=== PATIENT | female | born 1990 | race Caucasian/White ===

== ENCOUNTER 2017-08-29 04:24 | Day surgery (SDC) | payer BC, OTHER ==
[~2017-08-29] VITALS: Ht 154.9 cm; Wt 54.5 kg
[2017-08-29] VITALS (7 sets, daily range): BP systolic 96–104; BP diastolic 58–69; PULSE 62–83; TEMP 36.4–37.1; O2SAT 93–100; Ht 154.9 cm; Wt 54.5 kg
[~2017-08-29 04:24] MED LIST: ACET-1101 PO
[2017-08-29] MEDS ORDERED: MoRPHine SULFATE 4 MG/ML 1 ML CARP\\VIAL IV STA (04:46)
[2017-08-29] MEDS ORDERED: ONDANSETRON INJ 2 MG/ML 2 ML VIAL IV STA (04:46)
[2017-08-29] MEDS ORDERED: SODIUM CHLORIDE 0.9% 1000ML 1,000 ML IV STA (04:46)
[2017-08-29] MEDS ORDERED: OPTIRAY 320 IV PRN (05:00)
[2017-08-29 05:01] LABS: BASO % 0.1 %; BASO ABS # 0.01 K/uL (0-0.2); HEMATOCRIT 33.4 % (37-47); HEMOGLOBIN 11.3 g/dL (12.0-16.0); IG# 0.03 K/uL (0.00-0.02); LYMPH % 12.5 %; LYMPH ABS # 1.62 K/uL (1.2-3.4); MEAN CELL VOLUME 87.2 fL (80-100); MEAN CORPUSCULAR HEMOGLOBIN 29.5 pg (25-34); MEAN CORPUSCULAR HGB CONC 33.8 g/dl (32-36); MEAN PLATELET VOLUME 9.7 fL (7.4-10.4); MONO ABS # 0.64 K/uL (0.11-0.59); NEUT % 82.2 %; NEUT ABS # 10.61 K/uL (1.4-6.5); PLATELET COUNT 190 K/uL (130-400); RED CELL DISTRIBUTION WIDTH CV 13.4 % (11.5-14.5); RED CELL DISTRIBUTION WIDTH SD 42.9 fL (36.4-46.3); WHITE BLOOD COUNT 12.91 K/uL (4.8-10.8)
--- NOTE | 2017-08-29 05:05 | EMERGENCY ROOM VISIT NOTE ---
History First contact with patient: 04:36 Chief Complaint: ABDOMINAL PAIN Stated Complaint: PAIN IN STOMACH/ABDOMEN,SHOULDERS,CONSTIPATION,DIZ Nursing Triage Summary: Pt c/o abdominal pain since last evening. Now having nausea and dizziness. History of Present Illness The patient is a 26 year old female who presents to the Emergency Room with complaints of abdominal pain. The patient reports that she first developed abdominal pain yesterday evening at approximately 7:30 PM. She notes that the pain radiates across her lower abdomen. She states that for the past 4 hours, she has felt nauseated and lightheaded, especially with standing. She rates her overall discomfort an 8/10. She states that the pain worsens when she lies down. She also states that lying down causes the pain to radiate into her chest and shoulders. Nothing makes the pain better. She denies any history of abdominal issues or surgeries. Her last menstrual period was at the beginning of the month, although she does note she has some mild vaginal bleeding at this time. She denies urinary symptoms. She has not vomited. She denies changes in her bowel movements. She denies recent illness or fevers. Review of Systems A complete 10 point review of systems was reviewed with the patient with pertinent positives and negatives as per history of present illness. All else were negative. Past Medical/Surgical History Medical Problems: (1) Hemoperitoneum (2) No significant active problems Surgical Problems: (1) No significant past surgical history Social History Smoking Status: Never Smoker Housing Status: lives with family Current/Historical Medications Scheduled PRN Oxycodone/Acetaminophen 5MG/325MG (Percocet 5MG/325MG), 1 TABLET PO Q4H PRN for Pain Physical Exam Vital Signs Date Time Temp Pulse Resp B/P (MAP) Pulse Ox O2 Delivery O2 Flow Rate FiO2 08/29/17 06:56 36.8 79 18 102/72 100 08/29/17 06:44 79 18 102/72 100 Room Air 08/29/17 06:37 36.8 75 16 105/57 97 Room Air 08/29/17 04:52 92/56 08/29/17 04:29 36.6 83 20 107/34 100 Room Air Physical Exam VITALS: Vitals are noted on the nurse's note and reviewed by myself. Vital signs stable. GENERAL: This is a 26-year-old female, sitting up in bed, acutely ill-appearing , pale, vomiting into an emesis bag. SKIN: Pale. EARS: External auditory canals clear, tympanic membranes pearly rodriguez without erythema or effusion bilaterally. EYES: Pupils equal round and reactive to light and accommodation. MOUTH: Mucous membranes moist. HEART: Regular rate and rhythm without murmurs gallops or rubs. LUNGS: Clear to auscultation bilaterally without wheezes, rales or rhonchi. ABDOMEN: Positive bowel sounds. Diffuse tenderness and guarding to palpation of the entire abdomen. NEURO: Patient was alert and oriented to person place and time. Medical Decision & Procedures ER Provider Diagnostic Interpretation: US OB 1st TRIMESTER: No intrauterine gestation identified. Echogenic, vascular left adnexal structure measuring 4.3 x 3.7 x 3.8 cm. Adjacent complex fluid. Moderate free fluid noted in abdomen. Findings are highly suspicious for ruptured ectopic. Endometrial echocomplex measures up to 8 mm Probable fibroid at posterior uterine body measuring up to 1.8 cm. Nabothian cyst. Right ovary measures 3.8 x 2.7 x 3.5 cm and contains a 2.7 cm simple cyst. Left ovary measures 3.1 x 2.1 x 3.3 cm. Blood flow demonstrated in bilateral ovaries. Radiologist: Andreas Chery MD Laboratory Results 08/29/17 04:10 Test 08/29/17 04:10 Immature Granulocyte % (Auto) 0.2 % White Blood Count 12.91 K/uL (4.8-10.8) Red Blood Count 3.83 M/uL (4.2-5.4) Hemoglobin 11.3 g/dL (12.0-16.0) Hematocrit 33.4 % (37-47) Mean Corpuscular Volume 87.2 fL (80-100) Mean Corpuscular Hemoglobin 29.5 pg (25-34) Mean Corpuscular Hemoglobin Concent 33.8 g/dl (32-36) Platelet Count 190 K/uL (130-400) Mean Platelet Volume 9.7 fL (7.4-10.4) Neutrophils (%) (Auto) 82.2 % Lymphocytes (%) (Auto) 12.5 % Monocytes (%) (Auto) 5.0 % Eosinophils (%) (Auto) 0.0 % Basophils (%) (Auto) 0.1 % Neutrophils # (Auto) 10.61 K/uL (1.4-6.5) Lymphocytes # (Auto) 1.62 K/uL (1.2-3.4) Monocytes # (Auto) 0.64 K/uL (0.11-0.59) Eosinophils # (Auto) 0.00 K/uL (0-0.5) Basophils # (Auto) 0.01 K/uL (0-0.2) Immature Granulocyte # (Auto) 0.03 K/uL (0.00-0.02) Anion Gap 8.0 mmol/L (3-11) Est Creatinine Clear Calc Drug Dose 96.6 ml/min Estimated GFR () 129.3 Estimated GFR (Non- 111.6 BUN/Creatinine Ratio 14.7 (10-20) Calcium Level 8.5 mg/dl (8.5-10.1) Total Bilirubin 0.7 mg/dl (0.2-1) Direct Bilirubin 0.2 mg/dl (0-0.2) Aspartate Amino Transf (AST/SGOT) 8 U/L (15-37) Alanine Aminotransferase (ALT/SGPT) 17 U/L (12-78) Alkaline Phosphatase 35 U/L (45-117) Total Protein 7.0 gm/dl (6.4-8.2) Albumin 3.9 gm/dl (3.4-5.0) Lipase 124 U/L (73-393) Human Chorionic Gonadotropin, Qual POS (NEG) Human Chorionic Gonadotropin, Quant 546 mIU/mL Medications Administered Medications (Trade) Dose Ordered Sig/Priya Route Start Time Stop Time Status Last Admin Dose Admin Sodium Chloride 1,000 ml @ 999 mls/hr Q1H1M STAT IV 08/29/17 04:46 08/29/17 05:46 DC 08/29/17 04:58 999 MLS/HR Ondansetron HCl (Zofran Inj) 4 mg NOW STAT IV 08/29/17 04:46 08/29/17 04:48 DC 08/29/17 04:58 4 MG Morphine Sulfate (MoRPHine SULFATE INJ) 4 mg NOW STAT IV 08/29/17 04:46 08/29/17 04:48 DC 08/29/17 04:57 4 MG Bupivacaine HCl (Marcaine 0.5% MPF Inj) 30 ml STK-MED ONCE .ROUTE 08/29/17 06:25 08/29/17 06:26 DC 08/29/17 08:22 7 ML Hydromorphone HCl (Dilaudid Inj) 0.5 mg Q5M PRN IV 08/29/17 06:45 08/29/17 11:45 DC 08/29/17 09:11 0.5 MG ED Course The patient was evaluated as above. Labs were drawn and IV access was obtained. Patient was immediately treated with IV fluids, morphine and Zofran. Patient was reevaluated and feeling slightly better, although still reports dizziness and abdominal pain. Serum hCG was found to be positive. Patient was immediately sent for pelvic ultrasound. I spoke with the lab technician, who reports that the patient has significant amount of blood within the abdomen as well as a left adnexal mass. Consultation was immediately placed with Dr. Lion, who will meet the patient in the room to evaluate her. The patient will be taken to the OR emergently due to suspected ruptured ectopic . Medical Decision Differential diagnosis includes ectopic , kidney stone, appendicitis, perforated viscus, bowel obstruction, pancreatitis, sepsis, among others. The patient is a 26-year-old female who presents today complaining of abdominal pain. On exam, patient is extremely uncomfortable and borderline hypotensive. She did have a surgical abdomen. Serum was found to be positive, raising suspicion for ruptured ectopic. Patient was sent immediately to ultrasound which confirmed hemoperitoneum and a left adnexal mass. Labs otherwise showed leukocytosis, stable H&H. IV access x2 was established and patient was hydrated. CLOTH LAMINATING SUPERVISOR consulted and patient was taken to OR emergently. She remained hemodynamically stable throughout her ED stay. The patient's case was reviewed with Dr. Alcaraz, ED attending physician, who agreed with my assessment and treatment plan. Medication Reconcilliation Current Medication List: was personally reviewed by me Blood Pressure Screening Patient's blood pressure: Low blood pressure Impression Primary Impression: Ruptured ectopic Critical Care I have personally spent greater than 35 minutes of critical care time in the direct management of this patient. This includes bedside care, interpretation of diagnostic studies, and testing, discussion with consultants, patient, and family members, and other required patient management activities. This 35 minutes is in excess of all separately billable procedures. Departure Information Prescriptions Oxycodone/Acetaminophen 5MG/325MG (PERCOCET 5MG/325MG) Tab 1 TABLET PO Q4H Y for Pain, #14 TAB Prov: Mya Lion M.D. 08/29/17 Referrals No Doctor, Assigned (PCP) Patient Instructions [facility]
[2017-08-29 05:19] LABS: ALBUMIN 3.9 gm/dl (3.4-5.0); CALCIUM 8.5 mg/dl (8.5-10.1); CREATININE 0.75 mg/dl (0.60-1.20); POTASSIUM 3.3 mmol/L (3.5-5.1)
[2017-08-29] MEDS ORDERED: MIDAZOLAM HCL 1 MG/ML 2ML VIAL ONE (06:24)
[2017-08-29] MEDS ORDERED: ROCURONIUM BROMIDE 10 MG/ML 5 ML VIAL IV ONE (06:24)
[2017-08-29] MEDS ORDERED: SUCCINYLCHOLINE CHLORIDE 20 MG/ML 10 ML VIAL IV ONE (06:24)
[2017-08-29] MEDS ORDERED: NEOSTIGMINE METHYLSULFATE 5 MG/5 ML SYR ONE (06:24)
[2017-08-29] MEDS ORDERED: GLYCOPYRROLATE INJ 0.2 MG/ML VIAL ONE (06:24)
[2017-08-29] MEDS ORDERED: LIDOCAINE HCL 2% 2 ML VIAL (20MG/ML) ONE (06:24)
[2017-08-29] MEDS ORDERED: FENTANYL CITRATE INJ 50 MCG/1 ML 2 ML VIAL ONE (06:24)
[2017-08-29] MEDS ORDERED: ONDANSETRON INJ 2 MG/ML 2 ML VIAL ONE (06:24)
[2017-08-29] MEDS ORDERED: PROPOFOL IV EMULSION 10 MG/ML 20 ML VIAL IV ONE ×2 (06:24→08:12)
[2017-08-29] MEDS ORDERED: DEXAMETHASONE SOD INJ 4 MG/ML VIAL ONE (06:24)
[2017-08-29] MEDS ORDERED: BUPIVACAINE 0.5 % 5 MG/1 ML MPF 30ML VIAL ONE (06:25)
[2017-08-29] MEDS ORDERED: EpHEDrine SULFATE INJ 50 MG/ML AMP IV PRN (06:45)
[2017-08-29] MEDS ORDERED: PHENYLEPHRINE 100MCG/ML 5ML SYR IV PRN (06:45)
[2017-08-29] MEDS ORDERED: LABETALOL HCL IV 5 MG/ML 20ML IV PRN (06:45)
[2017-08-29] MEDS ORDERED: MoRPHine SULFATE 10 MG/ML CARP/VIAL IV PRN (06:45)
[2017-08-29] MEDS ORDERED: NALOXONE HCL 0.4 MG/1 ML VIAL/CARP IV PRN (06:45)
[2017-08-29] MEDS ORDERED: FLUMAZENIL 0.1 MG/1 ML 10 ML VIAL IV PRN (06:45)
[2017-08-29] MEDS ORDERED: ONDANSETRON INJ 2 MG/ML 2 ML VIAL IV PRN ×2 (06:45→15:15)
[2017-08-29] MEDS ORDERED: MEPERIDINE HCL 25 MG/ML CARP IV PRN (06:45)
[2017-08-29] MEDS ORDERED: ATROPINE SULFATE 0.1 MG/ML 5ML SYR IV PRN (06:45)
--- NOTE | 2017-08-29 06:58 | DIAGNOSTIC IMAGING REPORT ---
FIRST TRIMESTER OBSTETRICAL ULTRASOUND (transabdominal and endovaginal scanning) CLINICAL HISTORY: Lower pelvic pain and positive beta hCG. COMPARISON STUDY: No previous studies for comparison. FINDINGS: The uterus measured 9 x 4 cm the mid sagittal plane. No intrauterine gestational sac was visualized. There is a probable posterior uterine fibroid measuring 18 mm. The right ovary measured 38 x 27 x 35 mm. There is a 27 mm right ovarian follicle. There is a complex left adnexal mass measuring 43 x 37 x 38 mm. There is complex fluid, surrounding the left ovary and uterus. Free fluid is also visualized within the pelvis, right upper quadrant and left upper quadrant. The findings are viewed as suspicious for a ruptured ectopic, and emergent gynecological consultation is recommended. IMPRESSION: 1. No evidence of intrauterine 2. Complex left adnexal mass with adjacent complex fluid. There is also free fluid present within the abdomen. The findings are viewed as suspicious for a ruptured ectopic , and emergent gynecological consultation is recommended. Electronically signed by: Rk Lino M.D. 08/29/2017 6:57 AM Dictated Date/Time: 08/29/2017 6:52 AM
--- NOTE | 2017-08-29 07:00 | History and Physical ---
History & Physical Date Aug 29, 2017. Chief Complaint sudden onset abdominal pain History of Present Illness The patient is a 26 year old female with complaints of sudden onset abd pain. Started about 7:30 last night and has continued to worsen. She is very uncomfortable and came to the ED. She notes it is better when still but any movement makes it worse. She notes some nausea associated with this. She notes no issues with her bladder. Had bm at 2 am and very painful. Lmp was 08/11 , very sure, monthly menses. They are trying to get . NO control. she notes no travel physical therapist illness, no stds, no abnl paps. She notes the period on 08/11 was normal for her. When she got to the ED her serum qual was positive. her quant is 546. This would be a very desired . Patient notes she had no VB until presentation to the ED. Past Medical/Surgical History psxhx--oral Additional History Hepatic Disease: No Endocrine Disorder: No Kidney Disease: No Hypertension: No Heart Disease: No Bleeding Tendencies: No Infectious Diseases: No LMP: 08/11/17 Allergies Coded Allergies: No Known Allergies (Unverified , 08/29/17) Home Medications No Active Prescriptions or Reported Meds Physical Examination Skin: warm/dry Neck: supple Respiratory/Chest: lungs clear Cardiovascular: regular rate, rhythm Abdomen / GI: + pertinent finding (patient tender to even mild palpation with rebound and guarding, hypoactive bowel sounds.) Genitourinary - Female: + pertinent finding (deferred to or) Neurologic/Psych: alert, oriented x 3 Addiitonal Comments: reviewed US findings with the tech. Awaiting report, I personally reviewed the pictures. There is complex fluid and likely clot throughout the pelvis. There is fluid and complex fluid around the liver and spleen. The left ovary looks normal and there is a concern for possible ectopic complex in the left adnexa between the uterus and the ovary. right ovary with a 3.8cm simple appearing cyst. Diagnosis hemoperitonuem acute abdomen of unknown location Plan of Treatment Discussed with the patient the uncertainty of the diagnosis but highly suspicious for ruptured ectopic. Recommend dx lpsc. Consented for possible l/ r salpingectomy, possible l/r oophrectomy. Discussed could possible not find location of and would need to relieve blood from belly and follow closely as outpatient. Patient very desirous of if it is in any way viable. Will try to save tube if possible and perform salpingostomy. Discussed with the patient the uncertainty of what I may find at the time of surgery. She and her SO express understanding of the situation and the surgery. r/b/se of surgery discussed. Plan to go urgently to the or.
--- NOTE | 2017-08-29 08:28 | [facility] Post Operative Brief Note ---
Immediate Operative Summary Operative Date Aug 29, 2017. Pre-Operative Diagnosis Hemoperitonuem, Acute Abdomen, of Unknown Location Post-Operative Diagnosis Left Tubal Ectopic , 1L hemoperitoneum Procedure(s) Performed Diagnostic Laparoscopy, Left Salpingostomy, Drainage of Hemoperitoneum (Approximately 1 Liter) Surgeon Dr. Lion Fur Blower Surgeon(s) none Estimated Blood Loss 1000 ml (Hemoperitoneum) Findings Consistent with Post-Op Diagnosis Specimens A. Questionable Clot/Ectopic Drains None Anesthesia Type General Complication(s) none Disposition Accompanied Pt To Recover: yes Disposition: Recovery Room / PACU
[2017-08-29] MEDS ORDERED: IBUPROFEN 200 MG TAB PO PRN (08:30)
[2017-08-29] MEDS ORDERED: MoRPHine SULFATE 4 MG/ML 1 ML CARP\\VIAL IV PRN (08:30)
[2017-08-29] MEDS ORDERED: ACETAMINOPHEN 650 MG SUPP PR PRN (08:30)
[2017-08-29] MEDS ORDERED: MoRPHine SULFATE 2 MG/ML CARP IV PRN (08:30)
[2017-08-29] MEDS ORDERED: KETOROLAC TROMETHAMINE 30 MG/ML VIAL IV. PRN ×2 (08:30)
[2017-08-29] MEDS ORDERED: OXYCODONE/ACETAMINOPHEN 5-325 TAB PO PRN ×2 (08:30)
[2017-08-29] MEDS ORDERED: IBUPROFEN 600 MG TAB PO PRN (08:30)
--- NOTE | 2017-08-29 08:32 | Discharge Instructions ---
Discharge Instructions Date of Service Aug 29, 2017. Admission Reason for Admission: Pain In Stomach/Abdomen,Shoulders,Constipation,Diz Discharge Discharge Diagnosis / Problem: s/p laproscopy, treatment for ectopic Discharge Goals Goal(s): Routine recovery after surgery Activity Recommendations Activity Limitations: per Instructions/Follow-up section . Instructions / Follow-Up Instructions / Follow-Up ACTIVITY RECOMMENDATIONS: * Rest the first 2-3 days. You should be back to your normal activity levels by day 7. * No heavy lifting for 2 weeks. * No intercourse, tampons or douching until cleared by physician\\. * You may shower the next day. * Do not drive anytime that you are taking narcotic pain medicines. RETURN TO SCHOOL/WORK: * May return to school or work after 2-3 days. DIET: Nausea may occur in the immediate post-operative period. If so, take clear liquids such as tea, bouillon, apple juice until all nausea has subsided, then resume usual diet. MEDICATIONS: Resume previous medications unless instructed otherwise by your surgeon. Ibuprofen 200mg 2-3 tablets every 4-6 hours as needed -- OR -- Aleve 2 tablets every 8-12 hours as needed for post-operative discomfort Medications are over the counter. Tylenol may be used if above medications are contraindicated or not preferred. Medication should be taken with food or milk. Do not take on an empty stomach. SPECIAL CARE INSTRUCTIONS: * Check temperature twice daily for one week. report any elevation over 101 degrees. * You may experience some vagina spotting and/or bleeding. This is normal for 1 -2 weeks and should not be heavier than a normal period. If it is unusual in amount, call your physician. * Post-operative discomfort may consist of a sore throat, a "bloated" feeling and pain in the shoulders. these are normal symptoms, which usually only last for 2-3 days. * Remove band-aids tomorrow and shower. There is no need to replace band-aids unless there is drainage or discomfort. FOLLOW UP VISIT: Call your doctor's office for a post-operative 1 week visit if not already scheduled. Will need to follow blood test to 0. Please come to the outpatient lab on Sunday morning to have labs drawn. Current Hospital Diet Patient's current hospital diet: Clear Liquid Diet Discharge Diet Recommended Diet: Regular Diet Procedures Procedures Performed: Diagnostic Laparoscopy, Left Salpingostomy, Drainage of Hemoperitoneum (Approximately 1 Liter) Pending Studies Studies pending at discharge: no Medical Emergencies . Who to Call and When: Medical Emergencies: If at any time you feel your situation is an emergency, please call 911 immediately. . Non-Emergent Contact Non-Emergency issues call your: Parenting Skills Instructor . . "Provider Documentation" section prepared by Mya Lion. . [place] Drug Monitoring Program Search Results: patient reviewed within database, no issues identified
[2017-08-29] MEDS ORDERED: OXYC-57 PO (08:33)
[2017-08-29] MEDS: HYDROmorphone INJ 1 MG/ML SYR IV PRN ×2 (09:06→09:11)
--- NOTE | 2017-08-29 09:34 | Anesthesiology Progress Note ---
Anesthesia Post Op Note Date & Time Aug 29, 2017 at 09:34 Vital Signs Pain Intensity: 4 Vital Signs Past 12 Hours Date Time Temp Pulse Resp B/P (MAP) Pulse Ox O2 Delivery O2 Flow Rate FiO2 08/29/17 08:50 65 20 102/54 99 Oxymask 10 08/29/17 08:41 36.2 90 16 103/52 100 Oxymask 10 08/29/17 06:56 36.8 79 18 102/72 100 08/29/17 06:44 79 18 102/72 100 Room Air 08/29/17 06:37 36.8 75 16 105/57 97 Room Air 08/29/17 04:52 92/56 08/29/17 04:29 36.6 83 20 107/34 100 Room Air Notes Mental Status: alert / awake / arousable, participated in evaluation Pt Amnestic to Procedure: Yes Nausea / Vomiting: adequately controlled Pain: adequately controlled Airway Patency, RR, SpO2: stable & adequate BP & HR: stable & adequate Hydration State: stable & adequate Anesthetic Complications: no major complications apparent
--- NOTE | 2017-08-29 09:49 | Progress Note ---
Progress Note Date of Service Aug 29, 2017. Progress Note Explained the findings to the patient's SO. we did a salpingostomy, will need to follow quants. Will get quant sunday. Did briefly discuss that if the quant does not go to 0 or starts rising again, will need to treat with methotrexate. Plan to call the patient later to discuss. Needs f/u in the office in one week. He expresses understanding.
--- NOTE | 2017-08-29 10:01 | OPERATIVE REPORT ---
DATE OF OPERATION: 08/29/2017 PREOPERATIVE DIAGNOSES: 1. Acute abdomen. 2. Hemoperitoneum. 3. of unknown location. POSTOPERATIVE DIAGNOSES: 1. Same. 2. Same. 3. Left tubal ectopic extruding out of the fimbriated end. PROCEDURE: Diagnostic laparoscopy, left salpingostomy and drainage of hemoperitoneum (approximately 1 liter). SURGEON: Mya Lion MD. ACCOUNT RESOLUTION EXPERT: Nursing. ANESTHESIA: General per endotracheal tube. ESTIMATED BLOOD LOSS: 1000 mL. FLUIDS: 1 liter. URINE OUTPUT: 250 mL of clear yellow urine drained from the bladder at the end of the procedure. INDICATIONS: The patient is a 26-year-old G1, P0 who presents to the Emergency Department with acute onset abdominal pain worsened with movement, radiating to the chest and shoulder. Her quant was 526. An ultrasound showed complex fluid throughout the pelvis that was suspicious for clot and additionally fluid up around the liver and spleen. FINDINGS: Left tubal seems to be extruding out of the fimbriated end with organized clot at the fimbriated end, approximately 1 liter of hemoperitoneum, normal left ovary, normal right tube and right ovary. Uterus showed a small subserosal posterior fibroid maybe 1 cm. Appendix was visualized, normal. Liver edge visualized, normal, but there was blood above the liver between the liver and the diaphragm. COMPLICATIONS: None. DRAINS: Griffin. DISPOSITION: To recovery room in stable condition. DESCRIPTION OF THE PROCEDURE: The patient was taken to the operating room where she was identified verbally and by bracelet. She was transferred to the operating table where general anesthetic was induced without difficulty. She was then placed in dorsal lithotomy position in [facility]. Her arms were carefully prepped and draped at her side. Her chest was protected and secured and she was prepped and draped in normal sterile fashion. Timeout was held identifying correct patient, procedure and positioning. Exam under anesthesia was performed. Uterus was small and mobile. There are no appreciable adnexal masses. Attention was turned to the perineum where a Griffin catheter was placed sterilely. The speculum was placed in the vagina. There was a slight bit of blood coming from the cervical os. The anterior lip of the cervix was grasped with a single tooth tenaculum. The [employer] uterine manipulator was placed into the cervix to serve as a means of manipulation. The speculum was removed. Attention was then turned to the abdomen where an infraumbilical incision was made with the knife. Veress needle was placed through this opening pressure of 4 mmHg. Abdomen insufflated with 3 liters of carbon dioxide gas. An 11 mm optical trocar was placed through this with direct intraabdominal placement confirmed with the camera. Obvious blood noted throughout the abdomen and two 5 mm trocar sites were placed in the right and left lower quadrant under direct visualization. Then using the suction lead inspector, approximately 700 mL of blood and clot were removed from the abdomen. On examination of the pelvis, right tube and ovary were normal. Left ovary was normal. Left tube was dilated at the fimbriated end with a clot extruding from this. This is likely an extruding ectopic . The patient desired the most conservative management possible so decision made to proceed with salpingostomy. Using the Harmonic scalpel, an incision was made in the tube starting approximately 2 cm from the end of the fimbriated end through the fimbriated end. The clot was removed. The tube was hydro dissected with the suction lead inspector and no more clot or tissue was noted in the tube. This clot was suctioned up and some of it was removed in a bag. An edge of the tube was bleeding and this was attended to by grasping with a metal [place] grasper and applying cautery to the end of it. A 5 mm camera was then placed in left lower quadrant site. An EndoCatch bag was placed into the abdomen and some clot and potential tissue was placed into this and this was removed and sent for pathology. The pelvis was copiously irrigated. The tubal surgical site was carefully evaluated and a couple of other times some cautery was applied to this until hemostasis was noted to be excellent. Attention was then turned to the upper abdomen where more fluid was removed between the liver edge and the diaphragm. The patient was slowly taken out of Trendelenburg and further suctioning of blood was performed. All in all, I believe there was at least probably 1 liter of blood and clot in the abdomen. Once this was performed, the procedure was terminated. All trocars were removed. All trocar sites were repaired with 4-0 Vicryl in a subcuticular fashion. The incisions were infiltrated with 0.5% Marcaine and treated with Dermabond. The instruments were removed from the vagina and hemostasis noted to be excellent. The Griffin catheter was removed. The patient was awakened and taken to the recovery room in stable condition. I attest to the content of the Intraoperative Record and any orders documented therein. Any exception s are noted below.
[2017-08-29] MEDS: MoRPHine SULFATE 2 MG/ML CARP IV PRN ×2 (10:43→13:06)
[2017-08-29] MEDS ORDERED: IV FLUIDS COMPLETED PRN (11:30)
[2017-08-29 13:49] LABS: HEMATOCRIT 26.9 % (37-47); HEMOGLOBIN 9.1 g/dL (12.0-16.0); MEAN CELL VOLUME 87.1 fL (80-100); MEAN CORPUSCULAR HEMOGLOBIN 29.4 pg (25-34); MEAN CORPUSCULAR HGB CONC 33.8 g/dl (32-36); MEAN PLATELET VOLUME 9.8 fL (7.4-10.4); PLATELET COUNT 146 K/uL (130-400); RED CELL DISTRIBUTION WIDTH CV 13.5 % (11.5-14.5); RED CELL DISTRIBUTION WIDTH SD 42.6 fL (36.4-46.3); WHITE BLOOD COUNT 11.66 K/uL (4.8-10.8)
[2017-08-29] MEDS: LACTATED RINGER'S 1000ML 1,000 ML IV SCH (15:24)
[2017-08-29] MEDS: ACETAMINOPHEN 325 MG TAB PO PRN (17:41)
--- NOTE | 2017-08-29 17:56 | OB/GYN Progress Note ---
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 Subjective conversation w/ patient, physical exam, lab review Ambulation: limited ambulation Voiding: no voiding problems Passing Gas: No Diet Tolerance: Clear Liquids, Nausea/Vomiting Notes: Patient has had some issues in recovery. Has had n/v most of the day but this has slowly resolved and she is now tolerating some clears. They attempted ambulation and she made it to the nursery and felt unwell--lightheaded, dizzy, painful . She continues to have upper chest pain and right shoulder pain. Objective Vital Signs Date Time Temp Pulse Resp B/P (MAP) Pulse Ox O2 Delivery O2 Flow Rate FiO2 08/29/17 15:30 98 Room Air 08/29/17 15:30 37.1 62 15 96/68 (77) 98 Room Air 08/29/17 12:50 36.6 68 16 102/64 (77) 100 Nasal Cannula 2.0 08/29/17 12:00 36.4 65 20 99/64 (76) 100 Nasal Cannula 2.0 08/29/17 11:00 64 16 98/64 (75) 93 Room Air 08/29/17 10:30 16 104/69 (81) 94 Room Air 08/29/17 10:00 37.0 76 16 99/64 (76) 95 Nasal Cannula 4.0 08/29/17 10:00 95 Nasal Cannula 2.0 08/29/17 10:00 94 Nasal Cannula 2.0 08/29/17 10:00 16 95 08/29/17 09:45 73 18 101/54 99 Nasal Cannula 2 08/29/17 09:30 37 55 20 95/56 95 Nasal Cannula 2 08/29/17 09:20 53 19 106/62 96 Nasal Cannula 2 08/29/17 09:10 59 17 111/61 100 Oxymask 10 08/29/17 09:00 63 22 108/66 100 Oxymask 10 08/29/17 08:50 65 20 102/54 99 Oxymask 10 08/29/17 08:41 36.2 90 16 103/52 100 Oxymask 10 08/29/17 06:56 36.8 79 18 102/72 100 08/29/17 06:44 79 18 102/72 100 Room Air 08/29/17 06:37 36.8 75 16 105/57 97 Room Air 08/29/17 04:52 92/56 08/29/17 04:29 36.6 83 20 107/34 100 Room Air Physical Exam General Appearance: WELL-APPEARING, WD/WN, NO APPARENT DISTRESS Abdomen: soft, + tenderness (appropriate for post op) Incision Description: Clean, Dry & Intact Extremities: non-tender, normal inspection Laboratory Results Last 24 Hours Test 08/29/17 04:10 08/29/17 13:26 White Blood Count 12.91 K/uL 11.66 K/uL Red Blood Count 3.83 M/uL 3.09 M/uL Hemoglobin 11.3 g/dL 9.1 g/dL Hematocrit 33.4 % 26.9 % Mean Corpuscular Volume 87.2 fL 87.1 fL Mean Corpuscular Hemoglobin 29.5 pg 29.4 pg Mean Corpuscular Hemoglobin Concent 33.8 g/dl 33.8 g/dl Platelet Count 190 K/uL 146 K/uL Mean Platelet Volume 9.7 fL 9.8 fL Neutrophils (%) (Auto) 82.2 % Lymphocytes (%) (Auto) 12.5 % Monocytes (%) (Auto) 5.0 % Eosinophils (%) (Auto) 0.0 % Basophils (%) (Auto) 0.1 % Neutrophils # (Auto) 10.61 K/uL Lymphocytes # (Auto) 1.62 K/uL Monocytes # (Auto) 0.64 K/uL Eosinophils # (Auto) 0.00 K/uL Basophils # (Auto) 0.01 K/uL RDW Standard Deviation 42.9 fL 42.6 fL RDW Coefficient of Variation 13.4 % 13.5 % Immature Granulocyte % (Auto) 0.2 % Immature Granulocyte # (Auto) 0.03 K/uL Sodium Level 136 mmol/L Potassium Level 3.3 mmol/L Chloride Level 103 mmol/L Carbon Dioxide Level 25 mmol/L Anion Gap 8.0 mmol/L Blood Urea Nitrogen 11 mg/dl Creatinine 0.75 mg/dl Est Creatinine Clear Calc Drug Dose 96.6 ml/min Estimated GFR () 129.3 Estimated GFR (Non- 111.6 BUN/Creatinine Ratio 14.7 Random Glucose 129 mg/dl Calcium Level 8.5 mg/dl Total Bilirubin 0.7 mg/dl Direct Bilirubin 0.2 mg/dl Aspartate Amino Transf (AST/SGOT) 8 U/L Alanine Aminotransferase (ALT/SGPT) 17 U/L Alkaline Phosphatase 35 U/L Total Protein 7.0 gm/dl Albumin 3.9 gm/dl Lipase 124 U/L Human Chorionic Gonadotropin, Qual POS Human Chorionic Gonadotropin, Quant 546 mIU/mL Assessment and Plan Post-Op Continue Routine Care: Will cancel d/c for tonight as is very slow and not meeting criteria. She is however slowly improving. Nausea improved and seeming to tolerate clears. Will attempt ambulation again. Continue to treat pain with narcotics, tylenol and nsaids. Repeat h/h in 8 hours. Reevaluate in the am.
[2017-08-29 21:05] LABS: HEMATOCRIT 25.1 % (37-47); HEMOGLOBIN 8.7 g/dL (12.0-16.0)
[2017-08-30] VITALS (9 sets, daily range): BP systolic 84–100; BP diastolic 47–63; PULSE 55–69; TEMP 36.9–37; O2SAT 98–100
[2017-08-30] MEDS: ACETAMINOPHEN 325 MG TAB PO PRN ×2 (01:11→07:53)
[2017-08-30] MEDS ORDERED: NURSING VERBAL MED ORDER ONE (01:15)
[2017-08-30] MEDS: LACTATED RINGER'S 1000ML 1,000 ML IV SCH (01:21)
[2017-08-30] MEDS ORDERED: LACTATED RINGER'S 1000ML 1,000 ML IV SCH (01:30)
[2017-08-30 01:39] LABS: HEMATOCRIT 27.3 % (37-47); HEMOGLOBIN 9.2 g/dL (12.0-16.0); MEAN CELL VOLUME 88.1 fL (80-100); MEAN CORPUSCULAR HEMOGLOBIN 29.7 pg (25-34); MEAN PLATELET VOLUME 10.1 fL (7.4-10.4); PLATELET COUNT 154 K/uL (130-400); RED CELL DISTRIBUTION WIDTH CV 13.7 % (11.5-14.5); RED CELL DISTRIBUTION WIDTH SD 43.8 fL (36.4-46.3); WHITE BLOOD COUNT 8.52 K/uL (4.8-10.8)
[2017-08-30 02:35] LABS: MEAN CORPUSCULAR HGB CONC 33.7 g/dl (32-36)
--- NOTE | 2017-08-30 06:40 | OB/GYN Progress Note ---
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 Subjective conversation w/ patient, physical exam, lab review Ambulation: ambulating normally Voiding: no incontinence Passing Gas: No Diet Tolerance: Clear Liquids Notes: Patient had an episode last night of lightheadedness, dizziness. h/h was stable. Got a liter of fluid and was much improved. this am she feels well. Notes no n/v. no lightneadedness/dizziness. Pain controlled with oral pain meds. Review of Systems Constitutional: No fever, No chills Respiratory: No cough, No shortness of breath Cardiac: No chest pain Abdomen: + pain (appropriate postop), No nausea, No vomiting Objective Vital Signs Date Time Temp Pulse Resp B/P (MAP) Pulse Ox O2 Delivery O2 Flow Rate FiO2 08/30/17 04:00 37.0 60 18 86/48 (61) Room Air 08/30/17 01:05 69 18 100/63 (75) Room Air 08/30/17 00:45 91/57 (68) 08/30/17 00:45 84/47 (59) 08/30/17 00:23 58 18 89/52 (64) 100 Room Air 08/30/17 00:21 55 18 88/51 (63) 100 Room Air 08/30/17 00:19 62 18 84/47 (59) 99 Room Air 08/30/17 00:17 59 18 86/48 (61) 98 08/30/17 00:00 Room Air 08/29/17 19:55 36.9 83 18 96/58 (71) 98 Room Air 08/29/17 15:30 98 Room Air 08/29/17 15:30 37.1 62 15 96/68 (77) 98 Room Air 08/29/17 12:50 36.6 68 16 102/64 (77) 100 Nasal Cannula 2.0 08/29/17 12:00 36.4 65 20 99/64 (76) 100 Nasal Cannula 2.0 08/29/17 11:00 64 16 98/64 (75) 93 Room Air 08/29/17 10:30 16 104/69 (81) 94 Room Air 08/29/17 10:00 37.0 76 16 99/64 (76) 95 Nasal Cannula 4.0 08/29/17 10:00 95 Nasal Cannula 2.0 08/29/17 10:00 94 Nasal Cannula 2.0 08/29/17 10:00 16 95 08/29/17 09:45 73 18 101/54 99 Nasal Cannula 2 08/29/17 09:30 37 55 20 95/56 95 Nasal Cannula 2 08/29/17 09:20 53 19 106/62 96 Nasal Cannula 2 08/29/17 09:10 59 17 111/61 100 Oxymask 10 08/29/17 09:00 63 22 108/66 100 Oxymask 10 08/29/17 08:50 65 20 102/54 99 Oxymask 10 08/29/17 08:41 36.2 90 16 103/52 100 Oxymask 10 08/29/17 06:56 36.8 79 18 102/72 100 08/29/17 06:44 79 18 102/72 100 Room Air 08/29/17 06:37 36.8 75 16 105/57 97 Room Air Physical Exam General Appearance: WELL-APPEARING, WD/WN, NO APPARENT DISTRESS Respiratory/Chest: lungs clear, normal breath sounds Cardiovascular: regular rate, rhythm Abdomen: non tender, soft, + pertinent finding (no rebound or guarding.) Incision Description: Clean, Dry & Intact Extremities: non-tender, normal inspection, no pedal edema Laboratory Results Last 24 Hours Test 08/29/17 13:26 08/29/17 20:53 08/30/17 01:14 08/30/17 04:44 White Blood Count 11.66 K/uL 8.52 K/uL Red Blood Count 3.09 M/uL 3.10 M/uL Hemoglobin 9.1 g/dL 8.7 g/dL 9.2 g/dL Hematocrit 26.9 % 25.1 % 27.3 % Mean Corpuscular Volume 87.1 fL 88.1 fL Mean Corpuscular Hemoglobin 29.4 pg 29.7 pg Mean Corpuscular Hemoglobin Concent 33.8 g/dl 33.7 g/dl RDW Standard Deviation 42.6 fL 43.8 fL RDW Coefficient of Variation 13.5 % 13.7 % Platelet Count 146 K/uL 154 K/uL Mean Platelet Volume 9.8 fL 10.1 fL Assessment and Plan Post-Op Day Number: 1 Continue Routine Care: Improving. Anticipate d/c this am after breakfast. Again reviewed surgery and plan. Quant tomorrow and visit on in the office with quant before. Instructions given.
[2017-08-30 07:56] LABS: HEMOGLOBIN 8.5 g/dL (12.0-16.0)
--- NOTE | 2017-09-05 11:57 | DISCHARGE SUMMARY ---
ADMISSION DIAGNOSES: 1. of unknown location. 2. Hemoperitoneum with acute abdomen. DISCHARGE DIAGNOSES: 1. Left ectopic tubal in the fimbriated end. 2. Hemoperitoneum. HISTORY OF PRESENT ILLNESS: The patient is a 26-year-old white female 1, para 0 who presented to the Emergency Department with complaints of sudden onset abdominal pain. This started about 7:30 the night before presentation, has continued to worsen. She is very uncomfortable. She notes that the pain is better when she does not move at all, but anytime she moves, the pain worsens. She notes some nausea associated with this. She notes no issues with her bladder. She had a bowel movement at 2 a.m. and that was very painful. Last menstrual period was on August 11 and she is very sure and has monthly menses. They were trying to achieve . She was on no control. 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 No STDs and no abnormal Paps. She notes her period on August 26 was normal for her. When she got to the ED, her serum qualitative hCG was positive. She was sent to have an ultrasound and the radiation control technician called the PA, noting that she had blood throughout her pelvis and in her upper abdomen. Her quant was 546. This would be a very desired . The patient notes she had no vaginal bleeding until presentation to the ED. For the rest of the patient's detailed history and physical, please see her history and physical and her chart. ASSESSMENT: This is a patient with a of unknown location, possibly in the left adnexa, hemoperitoneum and acute abdomen. HOSPITAL COURSE: We discussed with the patient the uncertainty of the diagnosis, but highly suspicious for ruptured ectopic and a laparoscopy was recommended for evaluation. The patient underwent a diagnostic laparoscopy where we found an ectopic extruding from the fimbriated end. We performed a left salpingostomy and drainage of the hemoperitoneum, which was approximately 1 liter. Findings at the time of surgery revealed a left tubal that seemed to be extruding out of the fimbriated end with organized clot at the fimbriated end. Approximately 1 liter of blood was noted within the pelvis. The left ovary was normal and the right tube and ovary were normal. The uterus showed a small subserosal posterior fibroid, may be probably less than a centimeter. The appendix was visualized and was normal. The liver edge was visualized and normal, but there was a blood above the liver between the liver and the diaphragm. A salpingostomy was performed at the end of the left tube. It was hydrodissected and as much blood and clot as possible was removed from the pelvis. The patient's postoperative course was complicated by nausea and vomiting and dizziness and lightheadedness, requiring IV fluids. Her initial hemoglobin was 11.3 and 33.4. This nadired at 8.5 and 26.0. In the middle of the night on August 30, she had an episode of dizziness and lightheadedness. Her H&H were repeated and found to be stable. In the morning, she was feeling better. She tolerated a regular diet. She was voiding without difficulty. Her pain was well controlled on oral pain medications and she was discharged home with Percocet for pain to follow up with a quant on Sunday and then a visit with me in the office and a quant on Sunday. Discharge instructions were given.
== END 2017-08-30 09:58 | disposition home or self-care (01) ==
LOC: C.EDB 04:26 → C.ACU 06:59 → C.OBG 10:00
PROVIDERS: ADMIT Obstetrics & Gynecology; ATTEND Obstetrics & Gynecology
DX: O00.102 Left tubal pregnancy without intrauterine pregnancy (principal); K66.1 Hemoperitoneum

== ENCOUNTER → 2017-08-31 | Outpatient (CLI) | payer BC ==
[~2017-08-31] MED LIST changes: -ACET-1101 PO; +OXYC-57 PO
== END | disposition home or self-care (01) ==
LOC: C.LABPVFM 09:07
PROVIDERS: ATTEND Obstetrics & Gynecology
DX: O00.102 Left tubal pregnancy without intrauterine pregnancy (principal)

== ENCOUNTER → 2017-09-04 | Outpatient (CLI) | payer BC | END | disposition home or self-care (01) | LOC: C.LABPVFM 10:51 | PROVIDERS: ATTEND Obstetrics & Gynecology | DX: O00.102 Left tubal pregnancy without intrauterine pregnancy (principal) ==

== ENCOUNTER → 2017-09-11 | Outpatient (CLI) | payer BC | END | disposition home or self-care (01) | LOC: C.LABPVFM 09:11 | PROVIDERS: ATTEND Obstetrics & Gynecology | DX: O00.102 Left tubal pregnancy without intrauterine pregnancy (principal) ==

== ENCOUNTER → 2017-09-18 | Outpatient (CLI) | payer BC | END | disposition home or self-care (01) | LOC: C.LABPVFM 07:45 | PROVIDERS: ATTEND Obstetrics & Gynecology | DX: O00.102 Left tubal pregnancy without intrauterine pregnancy (principal) ==